=== PATIENT | female | born 1945 | race Caucasian/White ===

== ENCOUNTER → 2020-07-10 | Outpatient (CLI) | payer OTHER, MEDICAID ==
[~2020-07-10] MED LIST: ALENDRONATE SOD70 MG PO; DOXEPIN HC10 MG/1 ML PO; NEURONTIN300 MG PO; NORCO 10-325 T1 EACH PO; REQUIP 1 MG TABL1 M1 PO; TOVIAZ8 MG PO
== END ==
LOC: M.PC 09:28
PROVIDERS: ATTEND Physical Medicine & Rehabilitation
DX: S83.241D Other tear of medial meniscus, current injury, right knee, subsequent encounter (principal); M25.562 Pain in left knee; X58.XXXD Exposure to other specified factors, subsequent encounter

== ENCOUNTER → 2020-07-17 | Outpatient (CLI) | payer OTHER, MEDICAID | END | disposition home or self-care (01) | LOC: M.PC 10:02 | PROVIDERS: ATTEND Physical Medicine & Rehabilitation | DX: M25.561 Pain in right knee (principal); M25.562 Pain in left knee; Z79.899 Other long term (current) drug therapy; Z98.890 Other specified postprocedural states; Z90.710 Acquired absence of both cervix and uterus ==